=== PATIENT | male | born 2000 | race Two or more races ===

== ENCOUNTER 2024-03-22 07:53 | Emergency (ER) | payer OTHER ==
[~2024-03-22] VITALS: Ht 175.3 cm; Wt 81.6 kg
[~2024-03-22 07:53] MED LIST: CEPHALEXIN750 MG PO
[2024-03-22] MEDS ORDERED: METHYLPREDNISOLONE SOD SUCC 40 MG VIAL IM ONE (09:00)
[2024-03-22] MEDS ORDERED: CEFTRIAXONE SODIUM 1,000 MG VIAL IM ONE (09:00)
[2024-03-22] MEDS ORDERED: GUAIFENESIN 200 MG/10 ML BLIST.PACK PO ONE (09:00)
[2024-03-22 09:12] LABS: HEMATOCRIT 44.9 % (39.0-48.0); HEMOGLOBIN 15.2 g/dL (13-16.00); MEAN CELL VOLUME 83.7 fL (80.0-100.00); MEAN CORPUSCULAR HEMOGLOBIN 28.4 pg (27.00-32.0); MEAN CORPUSCULAR HGB CONC 33.9 g/dl (32.0-36.0); PLATELET COUNT 252 K/uL (150-450); RED BLOOD COUNT 5.36 M/uL (4.00-6.00)
== END 2024-03-22 11:16 | disposition home or self-care (01) ==
LOC: ER 07:55
PROVIDERS: General Practice
DX: R07.0 Pain in throat (principal); Z91.018 Allergy to other foods